=== PATIENT | male | born 1990 | race Two or more races ===

== ENCOUNTER → 2016-04-23 | Outpatient (CLI) | payer OTHER ==
[2014-09-18 01:43] VITALS: BP 111/65
--- NOTE | 2016-04-23 14:38 | KCIC ---
PROCEDURE MR of the left knee HISTORY Left knee pain chronically. Prior ACL repair. TECHNIQUE Standard noncontrast images are obtained. COMPARISON July 21, 2013. FINDINGS There is abnormal T2 signal traversing the body and posterior horn of medial meniscus with a dominant longitudinal morphology, compatible with a tear, even if the patient has had prior meniscectomy. No evidence of a lateral meniscal tear. The anterior cruciate ligament has been reconstructed but the graft is very poorly defined. Findings could indicate a recurrent tear, versus severe impingement or degeneration. History of trauma is not provided, but note that there are acute pivot-shift bone injuries including a small incomplete nondisplaced subchondral fracture at the lateral femoral condyle and marrow contusions at the posterior medial and lateral tibial plateaus, which would be compatible with a recurrent tear or at least laxity. There is a tibial tunnel cyst, measuring about 4.5 cm 1.5 cm transverse. The posterior cruciate ligament is intact. Medial collateral ligament demonstrates very mild proximal sprain. Iliotibial band unremarkable. Fibular collateral ligament, biceps femoris tendon and popliteus tendon are intact. Extensor mechanism is intact Large joint effusion. There is a small low signal structure surrounded by fluid just posterior to posterior root of the medial meniscus measuring 3 millimeters, could be postsurgical signal versus a tiny loose body. There is a small full-thickness cartilage defect at the posterior weight-bearing lateral femoral condyle, measuring 3 millimeters x 4 millimeters, new since the prior study. Mild chondromalacia at the posterior aspect of the medial compartment, new since prior study. No significant Baca cyst. IMPRESSION 1. Findings are most compatible with a tear of the anterior cruciate ligament reconstruction, with pivot-shift bone injuries. 2. Medial meniscal tear. 3. Development of small cartilage defect at the posterior weight-bearing lateral femoral condyle. Also mild chondromalacia at the posterior medial tibiofemoral compartment. 4. Tiny posterior loose body versus postsurgical artifact. Electronically signed by: Boris Catalan MD (Apr 23, 2016 14:36:37)
== END | disposition home or self-care (01) ==
LOC: KCIC MRI 12:11
PROVIDERS: ATTEND Physician Assistant Surgical
DX: S83.242A Other tear of medial meniscus, current injury, left knee, initial encounter (principal); M94.262 Chondromalacia, left knee
CPT/HCPCS: 73721